=== PATIENT | male | born 1970 | race African-American/Black ===

== ENCOUNTER 2020-12-25 03:30 | Emergency (ER) | payer BC, OTHER ==
[2020-12-25] MEDS ORDERED: Ketorolac Tromethamine 30 MG/ML VIAL ONE (03:57)
== END 2020-12-25 03:54 | disposition home or self-care (01) ==
LOC: CSHERS 03:30
DX: K08.89 Other specified disorders of teeth and supporting structures (principal); I10 Essential (primary) hypertension; Z79.899 Other long term (current) drug therapy
CPT/HCPCS: 96372; 99282; J1885